=== PATIENT | male | born 1950 | race Two or more races ===

== ENCOUNTER 2024-08-20 08:15 | Inpatient (IN) | payer MEDICARE, OTHER, SELFPAY ==
[2024-08-16 10:41] VITALS: BMI 25.4
[2024-08-16 13:19] LABS: % Basophils 1.5 % (0-2); % Eosinophils 8.9 % (0-6); % Immature Granulocytes 0.3 % (0-0.5); % Lymphocytes 24.8 % (20.5-51.1); % Monocytes 9.1 % (1.7-9.3); % Neutrophils 55.4 % (42.2-75.2); Absolute Basophils 0.1 10^3/uL (0-0.2); Absolute Eosinophils 0.7 10^3/uL (0-0.7); Absolute Lymphocytes 1.9 10^3/uL (1.2-3.4); Absolute Monocytes 0.7 10^3/uL (0.1-0.6); Absolute Neutrophils 4.2 10^3/uL (1.4-6.5); Hemoglobin 14.8 g/dL (13.0-18.0); Mean Corp Hgb Conc. 32.2 g/dL (33.0-37.0); Mean Corpuscular Hgb 29.3 pg (27.0-31.0); Mean Corpuscular Volume 91.1 fL (80.0-94.0); Mean Platelet Volume 9.7 fL (7.4-10.4); Nucleated Red Blood Cells % 0 % (-); Platelet Count 302 10^3/uL (130-400); Red Blood Cell Count 5.05 10^6/uL (4.70-6.10); Red Cell Dist. Width 12.6 % (11.5-14.5); White Blood Cell Count 7.5 10^3/uL (4.8-10.8)
[2024-08-16 13:30] LABS: INR 0.94; PT 12.9 Sec (11.4-14.6)
[2024-08-16 14:04] LABS: Blood Urea Nitrogen 18 mg/dl (9-20); Calcium 8.8 mg/dl (8.4-10.2); Carbon Dioxide 30 mmol/L (22-30); Chloride 103 mmol/L (98-107); Estimated Creatinine Clearance 64 ml/min; Glucose 90 mg/dl (70-99); Potassium 4.3 mmol/L (3.5-5.1); Sodium 142 mmol/L (135-145); eGFR > 60.00
[2024-08-20] VITALS (9 sets, daily range): BP systolic 109–144; BP diastolic 53–75; BMI 24.5
[2024-08-20] MEDS: NSS 500 IV (08:54)
[2024-08-20] MEDS: BACTROBAN NASAL 1 GRAM NASAL (09:04)
[2024-08-20] MEDS: PERIDEX 0.12% ORAL RINSE 15 ML PO (09:04)
--- NOTE | 2024-08-20 14:31 | W.SUR.PREOP ---
Pre-Operative Surgical Note
-
I have examined this patient prior to the performance of the scheduled procedure.
The patient's condition is unchanged from the time of the current History and
Physical and the patient is able to undergo the scheduled procedure.
[2024-08-20 15:52] LABS: ACT-LR - POC 297 Seconds (116-155)
--- NOTE | 2024-08-20 16:48 | W.SUR.POST ---
Surgical Immediate Post Op
Note
Pre Op Diagnosis: Right carotid stenosis
Post Op Diagnosis: same
Procedure Performed: Right TCAR
Primary Surgeon: Senia
Secondary Surgeons: Cecilia PGY2
Anesthesia: General
Estimated Blood Loss: 10cc
Fluids: See anesthesia flow sheet
Drains/Shunts: none
Specimens/Cultures: none
Doppler/Duplex/Angio (Y/N): Y
Complications: None
Operative Findings: Woke from anesthesia moving all extremities
[2024-08-20] MEDS: SUBLIMAZE 50 MCG IV (17:11)
[2024-08-20 17:13] LABS: Hematocrit 41.6 % (39.0-52.0); Hemoglobin 14.1 g/dL (13.0-18.0); Mean Corp Hgb Conc. 33.9 g/dL (33.0-37.0); Mean Corpuscular Hgb 29.9 pg (27.0-31.0); Mean Corpuscular Volume 88.3 fL (80.0-94.0); Mean Platelet Volume 9.3 fL (7.4-10.4); Platelet Count 255 10^3/uL (130-400); Red Blood Cell Count 4.71 10^6/uL (4.70-6.10); Red Cell Dist. Width 12.5 % (11.5-14.5); White Blood Cell Count 15.7 10^3/uL (4.8-10.8)
--- NOTE | 2024-08-20 17:19 | OR.RPT ---
Operative Report
Operative Report
Date of Operation: 08/20/2024
Pre Op Diagnosis: High-grade right internal carotid artery stenosis, asymptomatic
Post Op Diagnosis: High-grade right internal carotid artery stenosis, asymptomatic
Procedure:
1.) RIGHT trans-carotid artery revascularization with flow reversal embolic protection
9 mm x 40 mm ENROUTE STENT
5 mm x 30 mm pre- balloon angioplasty
2.) Ultrasound-guided percutaneous access to the left common femoral vein
Surgeon: Didier Conn III, MD
Agency Cashier: Praveen Brooks MD PhD, PGY2
Anesthesia: General
Fluoroscopy:
8.1 min
189 mGy
28.31 Gy.cm2 DAP
Complications: None
Estimated Blood Loss: Minimal
History and Indications for Procedure: 74-year-old male with asymptomatic high-grade right internal carotid artery stenosis.
Procedure in Detail: Zachary Hampton was correctly identified and placed supine on the operating table. After adequate induction of anesthesia the right neck was positioned appropriately. Using ultrasound guidance I identified the right common carotid
artery at the base of the right neck in between the heads of the sternocleidomastoid muscle. The right neck was then prepped and draped in usual sterile fashion. Similarly the bilateral groins were prepped and draped in the usual sterile fashion.
Preoperative antibiotics were administered. A timeout procedure was performed with the nursing and anesthesia staff confirming the patient's identity as well as the nature and laterality of the procedure.
A small vertical incision was made at the base of the right neck and between the 2 heads of the sternocleidomastoid muscle. Using electrocautery and sharp dissection the right common carotid artery was exposed. The vagus nerve was identified and
protected. The proximal right common carotid artery was encircled with a vessel loop. A 5-0 Prolene pursestring suture was then placed around the proposed puncture site in the right common carotid artery. Systemic heparin was administered at this
point.
Under ultrasound guidance I accessed the left common femoral vein with a micropuncture needle. I then advanced the micro-dilator and sheath over the microwire. A [employer] wire was then easily advanced through the micro-sheath and the 8 [place] sheath
was inserted. The side port was aspirated and then flushed with heparinized saline solution.
The right common carotid artery was then accessed with the marked micropuncture needle through the pursestring site. The microwire was then easily advanced to the clear svetlana on the wire. The micro-sheath was then easily advanced over the wire to the
3 cm svetlana. The inner dilator and wire were removed. An initial carotid arteriogram was then performed which demonstrated a high-grade stenosis of the proximal right internal carotid artery. The external carotid artery was patent. The common carotid
artery was patent. The location of the carotid bifurcation was marked on the screen. The microwire was reinserted and the external carotid artery was selected. The micro dilator and sheath were then advanced into the external carotid artery. The
inner dilator and wire were removed. The J-wire was then inserted through the microsheath into the external carotid artery. The 8 [place] arterial sheath was then inserted carefully under radiographic visualization keeping the J-wire tip in the
external carotid artery. The sheath was then secured in place at the skin level using 2 separate silk sutures. The ENROUTE [employer]ULT CUSTODIAN flow reversal system was connected, switched to the high setting and the patient was placed on passive flow reversal. Flow
reversal was confirmed with the heparin saline syringe test on the groin sheath.
At this point an additional arteriogram was performed via the 8 Fr carotid sheath in a more lateral projection to splay the carotid bifurcation. The screen was marked and a roadmap was set. The right common carotid artery vessel loop was secured at
this point and the patient was placed on high flow flow reversal. Under roadmap guidance the right internal carotid artery lesion was crossed with a 0.014 wire. The tip of the wire was placed in the distal internal carotid artery. A 5 mm x 30 mm
angioplasty balloon was then positioned across the high-grade stenosis in the right internal carotid artery. Predilatation angioplasty was performed with this balloon. The balloon was removed over the wire. A 9 mm x 40 mm ENROUTE stent was then
positioned in the desired location under roadmap guidance and deployed successfully. The delivery system was removed.
Completion arteriogram was performed with temporary cessation of flow reversal. This demonstrated an excellent technical result. The carotid stent was widely patent and in the desired location. There was brisk flow through the stent and into the
intracranial circulation. No significant residual stenosis was identified. No filling defects or other abnormalities were noted in the common carotid artery.
The right common carotid artery vessel loop was then released. The [employer]ULT CUSTODIAN flow reversal system was disconnected from both the common carotid artery and femoral venous sheaths. The common carotid artery sheath was then removed and the 5-0
Prolene pursestring secured. Protamine was administered. The suture line was closely inspected and hemostasis was achieved. Hemostasis was achieved in the wound bed. The wound was irrigated with saline solution. There was an excellent pulse in the
common carotid artery proximal and distal to the sheath entry site repair. The wound was then closed in layers and skin glue was applied.
The left femoral venous sheath was pulled and direct pressure was held over the puncture site for 10 minutes. Hemostasis was achieved and a sterile dressing was applied.
The patient awoke from general anesthesia with no immediate neurologic deficits. He was taken to the recovery room in stable condition.
Attestation: I was present and responsible for the entire procedure
Signed:
Didier Conn III, MD
[facility] Vascular Surgery
[phone] (cell)
[2024-08-20 17:22] LABS: INR 1.06; PT 14.1 Sec (11.4-14.6)
[2024-08-20 17:23] LABS: APTT 30.1 Sec (23.4-35.0)
[2024-08-20 17:28] LABS: Blood Urea Nitrogen 18 mg/dl (9-20); Calcium 8.2 mg/dl (8.4-10.2); Carbon Dioxide 21 mmol/L (22-30); Chloride 108 mmol/L (98-107); Estimated Creatinine Clearance 71 ml/min; Glucose 138 mg/dl (70-99); Potassium 3.8 mmol/L (3.5-5.1); Sodium 139 mmol/L (135-145); eGFR > 60.00
--- NOTE | 2024-08-20 17:45 | W.IMMPOSTOP ---
Surgical Immed Post Op Note
-
Primary Surgeon: Dr. Didier Conn III, MD
Assisting Surgeon: Praveen Brooks MD, PhD (PGY-2)
Pre-op Diagnosis: Symptomatic severe right carotid artery stenosis
Post-op Diagnosis: Symptomatic severe right carotid artery stenosis
Procedure Performed: Right TCAR
Anesthesia Type: General
Specimen / Cultures: None
Estimated Blood Loss: 10cc
Complications: None
Operative Findings: The patient was brought to the OR and placed in the supine position. After establishing neuromonitoring and induction of anesthesia, the patient was prepped and draped in usual sterile fashion. Ultrasound guidance was used to
identify the right common carotid artery up to the bifurcation, this was marked at the skin level. Incision was made between the two heads of the SCM and dissection was performed with a combination of electrocautery and sharp dissection to expose
the right common carotid artery. A vessel loop was passed around the right common carotid artery. A 5-0 prolene suture was used to create a purse string suture at the proposed puncture site on the vessel. We then turned our attention to the groin,
where we performed percutaneous access of the left common femoral vein with a micropuncture sheath. This was upsized to an 8-Fr sheath over a bentson wire. We then returned to the carotid were we used a micropuncture kit to access the right common
carotid, this was upsized to an 8-Fr sheath over wire. The ENROUTE neuroprotection flow reversal system was connected to the sheath and flow reversal was established via connection to the left femoral vein. Flow reversal was confirmed with the
heparin saline syringe test on the groin sheath. A 0.014 wire was advanced into the right internal carotid artery, crossing the lesion. A balloon angioplasty was performed at the site of occlusive disease in the internal carotid artery. We then
deployed the TCAR stent. Completion arteriogram showed a widely patent carotid stent and no residual stenosis. We removed the vessel loop and the sheath, securing the site with the purse string suture. Hemostasis in the wound bed was ensured. The
wound was closed with 3-0, 4-0 sutures and skin glue at the surface. The venous sheath was removed at manual pressure was held. At the conclusion of the case, the patient awoke, followed commands, and demonstrated no neurologic deficits. The patient
was transported to the PACU in stable condition.
[2024-08-20] MEDS: NSS 1000 IV (18:14)
--- NOTE | 2024-08-20 18:30 | PTCARENOTE ---
Pt admitted from PACU s/p scheduled R TAVR. Neuro assessment WNL. VSS. A-line leveled and zeroed, NSS at 80cc/hr. R neck approximated with skin glue, no drainage, Ice pack applied. L groin with gauze and tegaderm dressing, CDI. Pulses palpable. Not
voided since surgery. Tolerating sips. Plan of care discussed. Pt oriented to ICU.
[2024-08-20] MEDS: TYLENOL 650 MG PO (20:26)
--- NOTE | 2024-08-20 21:00 | PTCARENOTE ---
Rec'd pt from previous shift GCS 15, REBOLLEDO 5/5, Perrla. Incision on neck closed with dermabond. No swelling/ecchymosis noted. Ice pack PRN as ordered. Tylenol as ordered for mild pain. Q1h checks. Afebrile. SB on monitor. BP goal 100-165 systolic. Art
line leveled/zero'd. Pulses palpable. Left groin dressing CDI 2x2 gauze/tegaderm. 2L nasal cannula. Sat 96% lungs clear. Tolerating clear liquid diet. Voiding in urinal. at bedside. Both updated on plan of care. Will monitor.
[2024-08-21] VITALS (7 sets, daily range): BP systolic 108–127; BP diastolic 50–64
[2024-08-21] MEDS: NEO-SYNEPHRINE 250 IV (00:36)
[2024-08-21] MEDS: HEPARIN 5000 UNITS SC ×2 (01:00→09:07)
--- NOTE | 2024-08-21 01:30 | PTCARENOTE ---
No change in previous assessment. Will monitor.
[2024-08-21 03:40] LABS: Hematocrit 41.8 % (39.0-52.0); Mean Corp Hgb Conc. 33.5 g/dL (33.0-37.0); Mean Corpuscular Hgb 30.2 pg (27.0-31.0); Mean Corpuscular Volume 90.1 fL (80.0-94.0); Mean Platelet Volume 9.4 fL (7.4-10.4); Platelet Count 320 10^3/uL (130-400); Red Blood Cell Count 4.64 10^6/uL (4.70-6.10); Red Cell Dist. Width 12.6 % (11.5-14.5); White Blood Cell Count 13.4 10^3/uL (4.8-10.8)
[2024-08-21 03:43] LABS: PT 13.5 Sec (11.4-14.6)
[2024-08-21 03:44] LABS: APTT 29.4 Sec (23.4-35.0)
[2024-08-21 03:57] LABS: Blood Urea Nitrogen 16 mg/dl (9-20); Calcium 8.3 mg/dl (8.4-10.2); Carbon Dioxide 21 mmol/L (22-30); Chloride 109 mmol/L (98-107); Estimated Creatinine Clearance 79 ml/min; Glucose 136 mg/dl (70-99); Potassium 4.3 mmol/L (3.5-5.1); Sodium 136 mmol/L (135-145); eGFR > 60.00
[2024-08-21] MEDS: NSS 1000 IV (05:05)
--- NOTE | 2024-08-21 05:11 | PTCARENOTE ---
No change in previously documented neuro status. Remains intact. Meek on at 20mcg to maintain goal SBP. Will monitor.
--- NOTE | 2024-08-21 08:14 | W.PN.VS ---
Today's Communication / Plan
-
Seen and assessed with Dr. Dozier
Assessment/Plan
-
POD 1 right TCAR
Plan:
-DC A-line
-DC IV fluids
-Out of bed/ambulate
-P.o. medications
-Increase diet
-Likely DC later today
Subjective Data
-
Date of Service: August 21, 2024
Patient seen at bedside this a.m. with Dr. Dozier. Patient offers no complaints at this time. No events overnight.
Objective Data
-
Vital Signs
Temp Pulse Resp BP Pulse Ox
97.4 F 45 16 125/55 97
08/21/24 03:20 08/21/24 06:00 08/21/24 06:00 08/21/24 01:00 08/21/24 06:00
Intake and Output
08/20/24 08/21/24 08/22/24
06:59 06:59 06:59
Intake Total 1049 / 1049
Output Total 700 / 700
Balance 349 / 349
Intake:
Oral fluids 30 / 30
IV fluids (Total) 1019 / 1019
JORGE 39 / 39
Normosol 100 / 100
Nss 1,000 ml @ 80 mls/hr IV . 880 / 880
[id number] [facility] Rx#:[id number]
Output:
Urine, Voided 700 / 700
Lab Results
08/21/24 03:18
08/21/24 03:18
Calcium 8.3 mg/dl (8.4-10.2) L 08/21/24 03:18
Physical Exam
-
AAOx3
No tachypnea on room air
No tachycardia at this time
No events overnight
Right neck site clean, dry, intact, soft, flat
Groin site soft and flat
Moves all extremities to command
Tongue midline
[2024-08-21] MEDS: VITAMIN D3 (cholecalciferol) 25 MCG PO (09:06)
[2024-08-21] MEDS: PLAVIX 75 MG PO (09:06)
[2024-08-21] MEDS: PROTONIX 40 MG PO (09:07)
[2024-08-21] MEDS: ASPIR LOW (ENTERIC COATED) 81 MG PO (09:07)
[2024-08-21] MEDS: CRESTOR 10 MG PO (09:07)
--- NOTE | 2024-08-21 09:23 | PTCARENOTE ---
Update with Vascular team this am. POD#!1 protocols, plan for deline, cap IVF, advance diet and activity. Plan for evaluation toward discharge later today. Update with Shipping And Receiving Operator team. Follow up plan of cares. Follow up teaching and recovery
process with patient. Continue with teaching and supportive cares.
--- NOTE | 2024-08-21 10:56 | CM ---
CM following re: discharge planning.
Discussed in Rounds, reviewed pt's chart, met with pt.
Pt is a 74 year old male, admitted with primary dx of POD 1 right TCAR. Per Vascular Surgery pt will be discharged home this afternoon. Pt is aware, expressed his agreement and he stated his spouse will transport home. IMM reviewed, placed on chart,
pt has a copy.
Pt reports he lives with spouse 2SH, 1 step to enter, has 2 supportive children. 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 No DME, VN or SNF history.
PCP: Mainor Rowley
Pharmacy: [facility]
D/C plan: home no needs. Spouse to transport.
--- NOTE | 2024-08-21 11:30 | PTCARENOTE ---
Update in morning rounds. Follow up patient care needs and plan of cares. Continue to progress thru pod 1 recovery. Out of bed with supervision, ambulate room unassisted. Plan for walk thru unit. Eating late breakfast. Continue to follow.
--- NOTE | 2024-08-21 12:54 | PTCARENOTE ---
Ambulate entire floor of unit with staff. VSS continue trends. Eating lunch with will await vascular evaluation for discharge. No changes in assessment.
--- NOTE | 2024-08-21 13:03 | CON.INTV ---
Consultation
Consultation Request
Date/Time Consultation Requested: 08/20/2024
Date/Time Consultation Performed: 08/21/2020
Requesting Provider: Dr. Conn
Performing Provider: Dr. Ki Carrillo
Reason for Consultation: RIGHT trans-carotid artery revascularization with flow reversal embolic pro
Medical History
-
History of Present Illness:
74-year-old man with history of hypertension, SVT, carotid stenosis, electively admitted to the hospital 08/20/2024 for revascularization.
Patient underwent TCAR on 08/20/2024. Currently in the critical care unit. Overnight dynamically stable.
Denies any headache, blurry vision.
Denies any stridor.
Denies shortness of breath
Denies nausea or vomiting.
Past Medical History
Past Medical History: Other (See assessment and plan)
Social History
Tobacco: Former Smoker
Alcohol: None
Drug: None
Living: With Family
Employment: Retired ([employer] nurse)
Family History
Family History: Reviewed & Not Pertinent
Allergies / Home Medications
Allergies
Allergy/AdvReac Type Severity Reaction Status Date / Time
No Known Allergies Allergy Unverified 08/20/24 08:49
Home Medications
�Medication �Instructions �Recorded �Confirmed �Last Taken �Type
ascorbic acid (vitamin C) 500 mg 500 mg PO DAILY Supplement 08/14/24 08/20/24 08/19/24 08:00 History
tablet (Vitamin C)
aspirin 81 mg capsule 81 mg PO DAILY Blood Clot 08/14/24 08/20/24 08/20/24 07:00 History
Prevention/Tx
calcium carbonate (Tums) 200 mg PO BID PRN GERD 08/14/24 08/14/24 Unknown History
cholecalciferol (vitamin D3) 25 25 mcg PO DAILY Supplement 08/14/24 08/20/24 08/19/24 09:00 History
mcg (1,000 unit) capsule (Vitamin
D3)
clopidogrel 75 mg tablet 75 mg PO DAILY Blood Clot 08/14/24 08/20/24 08/20/24 07:00 History
Prevention/Tx
elderberry fruit 200 mg capsule 1 mg PO HS Supplement 08/14/24 08/20/24 08/19/24 21:00 History
fluticasone propionate 50 1 spray intranasal DAILY PRN 08/14/24 08/14/24 Unknown History
mcg/actuation nasal congestion
spray,suspension
ibuprofen 200 mg tablet (Advil) 200 mg PO Q6H PRN pain/rt heel 08/14/24 08/14/24 Unknown History
metoprolol succinate 50 mg 50 mg PO DAILY Heart 08/14/24 08/20/24 08/20/24 07:00 History
tablet,extended release 24 hr Disease/Condition
pantoprazole 40 mg tablet,delayed 40 mg PO DAILY Gastrointestinal 08/14/24 08/20/24 08/19/24 08:00 History
release Issue
rosuvastatin 10 mg tablet 10 mg PO DAILY High Cholesterol 08/14/24 08/20/24 08/19/24 08:00 History
vitamin B complex 1 cap PO DAILY Supplement 08/14/24 08/20/24 08/19/24 09:00 History
Review of Systems
-
History Source: Patient
All other systems: Negative unless noted
Vitals / Labs / Diagnostic Testing
Vital Signs
Temp Pulse Resp BP Pulse Ox
99.5 F 56 23 110/63 98
08/21/24 12:15 08/21/24 11:15 08/21/24 11:15 08/21/24 10:34 08/21/24 09:20
Lab Data
08/21/24 03:18
08/21/24 03:18
Laboratory Results
08/20/24 08/21/24
16:57 03:18
PT 14.1 13.5
INR 1.06 1.00
APTT 30.1 29.4
Diagnostic Testing:
Physical Exam
-
HEENT: Normocephalic, Other (No stridor on exam) and Other (Right cervical incision intact.)
Cardiovascular: S1/S2
Respiratory: Non-Labored Respirations
GI: Soft and Non Distended
Neurology: Awake, Oriented and No Motor Deficits
Skin: Warm
General: Comfortable
Assessment
-
Status post RIGHT trans-carotid artery revascularization with flow reversal embolic protection Dr. Conn 08/20/2024
Conditions present prior admission:
Hypertension
Carotid artery stenosis
SVT
Hypercholesterolemia
Former smoker quit many years ago
Assessment and plan:
Postoperative day 1: Doing well
Postoperative surgical intensive care unit monitoring
Supplemental oxygen as needed
Incentive spirometry
Aspiration precautions
Incision is intact without hematoma
No stridor on exam
Neurologically and hemodynamically stable
Neuro and vascular checks per protocol
Vascular surgery following-correspondence and operative notes reviewed
Possible discharge later today
Continue outpatient medication
Antiplatelets
Increase mobility as tolerated
Hopefully patient can be discharged today.
If not discharged today then transferred to telemetry.
--- NOTE | 2024-08-21 14:36 | W.DS.TRANS ---
DC Summary - Cna Ltc
-
Discharge Instructions:
Discharge Diagnosis/Procedures Right TCAR
Diet As tolerated
Activity No strenuous activity
Driving Restrictions Not until seen by your Dr
Bathing Restrictions OK to Shower
Instructions:
Stand-Alone Forms: DC Instr - Vascular OR
Changes to Home Medications: No
Discharge Medications:
DC Medications w/original date entered in [employer]
ascorbic acid (vitamin C) 500 mg tablet (Vitamin C) 500 mg PO DAILY Supplement 08/14/24
aspirin 81 mg capsule 81 mg PO DAILY Blood Clot Prevention/Tx 08/14/24
calcium carbonate (Tums) 200 mg PO BID PRN GERD 08/14/24
cholecalciferol (vitamin D3) 25 mcg (1,000 unit) capsule (Vitamin D3) 25 mcg PO DAILY Supplement 08/14/24
clopidogrel 75 mg tablet 75 mg PO DAILY Blood Clot Prevention/Tx 08/14/24
elderberry fruit 200 mg capsule 1 mg PO HS Supplement 08/14/24
fluticasone propionate 50 mcg/actuation nasal spray,suspension 1 spray intranasal DAILY PRN congestion 08/14/24
ibuprofen 200 mg tablet (Advil) 200 mg PO Q6H PRN pain/rt heel 08/14/24
metoprolol succinate 50 mg tablet,extended release 24 hr 50 mg PO DAILY Heart Disease/Condition 08/14/24
pantoprazole 40 mg tablet,delayed release 40 mg PO DAILY Gastrointestinal Issue 08/14/24
rosuvastatin 10 mg tablet 10 mg PO DAILY High Cholesterol 08/14/24
vitamin B complex 1 cap PO DAILY Supplement 08/14/24
Home Medication Changes
Pending Results: No
--- NOTE | 2024-08-21 14:44 | PTCARENOTE ---
Vascular team at bedside reinforced discharge teaching instructions and follow up plan. Reinforce teaching post op recovery and discharge instructions, discharge vitals updated, lines removed ambulate room and instructions graft information
provided.
== END 2024-08-21 14:57 | disposition home or self-care (01) | DRG 36 ==
LOC: ICU 08:15
PROVIDERS: Nurse Practitioner Acute Care; ADMITTING PHYSICIAN Surgery Vascular Surgery; CONSULT PHYSICIAN Internal Medicine Critical Care Medicine; FAMILY PHYSICIAN Family Medicine
PROC: 037H3DZ Dilation of Right Common Carotid Artery with Intraluminal Device, Percutaneous Approach (ICD-10-PCS; 2024-08-20)
DX: I65.21 Occlusion and stenosis of right carotid artery (principal); Z87.891 Personal history of nicotine dependence; I10 Essential (primary) hypertension
CPT/HCPCS: 36415; 37215; 71046; 80048; 85025; 85027; 85610; 85730; C1725; C1769; C1884; C1894; Q9967

== ENCOUNTER → 2024-09-30 13:10 | Outpatient (REF) | payer MEDICARE, OTHER, SELFPAY | LOC: RAD 13:10 | PROVIDERS: ATTENDING PHYSICIAN Registered Nurse; FAMILY PHYSICIAN Family Medicine | DX: I65.21 Occlusion and stenosis of right carotid artery (principal) | CPT/HCPCS: 93880 ==

== ENCOUNTER → 2025-04-08 11:23 | Outpatient (REF) | payer MEDICARE, OTHER, SELFPAY | LOC: RAD 11:23 | PROVIDERS: ATTENDING PHYSICIAN Surgery Vascular Surgery; FAMILY PHYSICIAN Family Medicine | DX: I65.21 Occlusion and stenosis of right carotid artery (principal) | CPT/HCPCS: 93880 ==